=== PATIENT | male | born 1995 | race Caucasian/White ===

== ENCOUNTER 2018-04-08 13:24 | Emergency (ER) | payer BC ==
[2018-04-08 13:44] VITALS: BP 144/93
--- NOTE | 2018-04-08 14:23 | EDPHY ---
H & P Time Seen by Provider: 04/08/18 14:23 HPI/ROS: CHIEF COMPLAINT: Left shoulder injury HISTORY OF PRESENT ILLNESS: [place] he fell backwards on his outstretched left arm injuring his shoulder. He has a history of clavicle fracture and AC separation said this felt different. He thinks he dislocated it. He was not able to move it. He was driven here by friend. The patient says that he was being moved up in the bed after he got here and felt a pop followed by a little bit of tingling and now is pain is much better and he thinks he relocated at spontaneously. REVIEW OF SYSTEMS: Denies weakness or numbness in the hand or abdominal pain. PAST MEDICAL HISTORY: Clavicle fracture 6 years ago, and AC separation both in the left side. ADD Social history: [employer] student General Appearance: Alert and conversant, cooperative. No AC tenderness. Normal range of motion of the left shoulder actively and passively although he has some pain in trying to abduct it. Skin normal without laceration or bruising or ecchymosis. Normal motor sensory and vascular in the left hand. Specifically has normal sensation in the deltoid area on both shoulders. No tenderness in the cervical spine or the upper extremity bony. Nontender over the spleen. Emergency Department course/MDM: X-ray personally interpreted is normal. I think the most likely thing is the patient's spontaneously reduced after sustaining a dislocation and his fall. Warned he needs mandatory orthopedic follow-up, risk of recurrent dislocation is high. Declined a sling or pain medication. Smoking Status: Current every day smoker Constitutional: Initial Vital Signs Temperature (C) 36.5 C 04/08/18 13:42 Heart Rate 82 04/08/18 13:42 Respiratory Rate 18 04/08/18 13:42 Blood Pressure 144/93 H 04/08/18 13:42 O2 Sat (%) 98 04/08/18 13:42 O2 Delivery Mode Room Air Allergies/Adverse Reactions: No Known Allergies Allergy (Unverified 04/08/18 13:41) Home Medications: Medication Instructions Recorded Adderall Xr 10 mg Capsule 04/08/18 MDM/Departure - MDM Imaging Results: Imaging Impressions Shoulder X-Ray 04/08/18 13:48 Impression: No fracture or dislocation of the left shoulder. Imaging: I viewed and interpreted images myself - Depart Disposition: Home, Routine, Self-Care Clinical Impression: Probable shoulder dislocation, reduced Condition: Good Instructions: Shoulder Dislocation (ED) Additional Instructions: Limited use of left shoulder. Do not lift your elbow above year clavicle, do not move your arm behind your hip on the left side. Mandatory orthopedic follow-up next week. Please bring the computer disc with the x-rays on it to your appointment. Referrals: Cuong Soria MD [Medical Doctor] - 5-7 days, call for appt.
== END 2018-04-08 14:47 | disposition home or self-care (01) ==
DX: S49.92XA Unspecified injury of left shoulder and upper arm, initial encounter (principal); V00.311A Fall from snowboard, initial encounter; Y93.23 Activity, snow (alpine) (downhill) skiing, snowboarding, sledding, tobogganing and snow tubing; Y92.838 Other recreation area as the place of occurrence of the external cause